=== PATIENT | female | born 2000 | race African-American/Black ===

== ENCOUNTER 2019-12-14 14:31 | Emergency (ER) | payer OTHER ==
[~2019-12-14] VITALS: Ht 175.3 cm; Wt 90.9 kg
[~2019-12-14 14:31] MED LIST: NOCURR
[2019-12-14] MEDS ORDERED: KETOROLAC TROMETHAMINE 10 MG TABLET PO ONE (16:30)
[2019-12-14] MEDS ORDERED: METHOCARBAMOL 500 MG TABLET PO ONE (16:30)
[2019-12-14 16:59] VITALS: BP 129/80
== END 2019-12-14 17:26 | disposition home or self-care (01) ==
LOC: EMS 14:38
DX: S70.11XA Contusion of right thigh, initial encounter (principal); S70.12XA Contusion of left thigh, initial encounter; V49.9XXA Car occupant (driver) (passenger) injured in unspecified traffic accident, initial encounter; Y93.89 Activity, other specified; Y92.89 Other specified places as the place of occurrence of the external cause; Y99.8 Other external cause status

== ENCOUNTER 2021-09-11 16:47 | Emergency (ER) | payer OTHER ==
[~2021-09-11] VITALS: Ht 175.3 cm; Wt 111.3 kg
[2021-09-11 17:02] VITALS: BP 138/71
== END 2021-09-11 18:46 | disposition left against medical advice (07) ==
LOC: EMS 18:46
DX: R10.9 Unspecified abdominal pain (principal); Z53.21 Procedure and treatment not carried out due to patient leaving prior to being seen by health care provider

== ENCOUNTER 2021-10-07 08:28 | Emergency (ER) | payer OTHER ==
[~2021-10-07] VITALS: Ht 175.3 cm; Wt 104.5 kg
[2021-10-07] MEDS ORDERED: KETOROLAC TROMETHAMINE 60 MG/2 ML VIAL IM ONE (09:30)
[2021-10-07 09:37] LABS: BASOPHILS % (AUTO) 0.6 % (0.0-2.0); EOSINOPHILS % (AUTO) 4.1 % (1.0-6.0); HEMOGLOBIN 14.7 g/dL (12.0-16.0); LYMPHOCYTES % (AUTO) 27.4 % (22.0-44.0); MEAN CORPUSCULAR HEMOGLOBIN 27.8 pg (26.0-34.0); MEAN CORPUSCULAR VOLUME 79 fL (80-100); MONOCYTES # (AUTO) 0.4 K/uL (0.1-1.0); MONOCYTES % (AUTO) 9.8 % (2.0-9.0); NEUTROPHILS # (AUTO) 2.2 K/uL (1.8-7.7); NEUTROPHILS % (AUTO) 58.1 % (40.0-70.0); PLATELET COUNT (AUTO) 197 K/uL (150-450); RED BLOOD CELL COUNT(AUTO) 5.29 MIL/uL (4.00-5.20); RED CELL DISTRIBUTION WIDTH 13.5 % (11.5-14.5)
[2021-10-07 09:41] LABS: ANION GAP 6 mmol/L (8-16); CALCIUM, TOTAL 9.2 mg/dL (8.8-10.5); CARBON DIOXIDE 29 mmol/L (22-29); CHLORIDE 105 mmol/L (98-107); CREATININE 1.03 mg/dL (0.60-1.30); GLOMERULAR FILTR. RATE CALC > 60 mL/min (>60); GLUCOSE,RANDOM 95 mg/dL (70-110); POTASSIUM 4.7 mmol/L (3.5-5.1); SODIUM SERUM 140 mmol/L (136-145); UREA NITROGEN, BLOOD 11 mg/dL (7-18)
[2021-10-07 09:47] LABS: ALANINE AMINOTRANSFERASE 27 U/L (12-78); ALBUMIN 3.9 g/dL (3.4-5.0); ALKALINE PHOSPHATASE 68 U/L (46-116); ASPARTATE AMINOTRANSFERASE 20 U/L (15-37); BILIRUBIN,TOTAL 0.4 mg/dL (0.1-1.0); LIPASE 93 U/L (73-393)
[2021-10-07 10:40] LABS: APPEARANCE,URINE CLEAR (CLEAR); BILIRUBIN,URINE NEGATIVE (NEGATIVE); GLUCOSE, URINE (UA) NEGATIVE (NEGATIVE); KETONES,URINE NEGATIVE (NEGATIVE); LEUKOCYTE ESTERASE ,URINE TRACE (NEGATIVE); NITRATE,URINE NEGATIVE (NEGATIVE); OCCULT BLOOD,URINE NEGATIVE (NEGATIVE); PROTEIN,URINE NEGATIVE (NEGATIVE); UROBILINOGEN,URINE 0.2 mg/dL (<=1.0)
[2021-10-07 10:55] LABS: BACTERIA,URINE None Seen /HPF (None Seen); RBC,URINE None Seen /HPF (0-2); SQUAMOUS EPITHELIAL CELL,UR Few /LPF (None Seen); WBC,URINE 0-2 /HPF (0-5)
[2021-10-07 12:19] VITALS: BP 131/81
== END 2021-10-07 12:36 | disposition home or self-care (01) ==
LOC: EMS 08:44
DX: N83.201 Unspecified ovarian cyst, right side (principal); K80.20 Calculus of gallbladder without cholecystitis without obstruction
CPT/HCPCS: 36415; 76700; 76830; 76856; 80053; 81001; 83690; 84703; 85025; 96372; 99284; J1885